=== PATIENT | male | born 1995 ===

== ENCOUNTER 2021-06-11 13:19 | Emergency (ER) | payer MEDICAID, OTHER ==
[~2021-06-11] VITALS: Ht 182.9 cm; Wt 113.4 kg
[2021-06-11 13:20] VITALS: BP 151/81
[2021-06-11] MEDS ORDERED: IBUP800T27 PO (14:56)
== END 2021-06-11 15:08 | disposition home or self-care (01) ==
LOC: ER 13:19
DX: S63.91XA Sprain of unspecified part of right wrist and hand, initial encounter (principal); F17.210 Nicotine dependence, cigarettes, uncomplicated; Z88.8 Allergy status to other drugs, medicaments and biological substances; X50.1XXA Overexertion from prolonged static or awkward postures, initial encounter; Y93.89 Activity, other specified; Y92.89 Other specified places as the place of occurrence of the external cause; Y99.8 Other external cause status
CPT/HCPCS: 73130